=== PATIENT | male | born 1945 | race Caucasian/White ===

== ENCOUNTER 2016-12-25 07:21 | Outpatient (CLI) | payer MEDICARE, OTHER | END 2016-12-25 07:22 | disposition home or self-care (01) | DX: N28.9 Disorder of kidney and ureter, unspecified (principal); E11.9 Type 2 diabetes mellitus without complications; I10 Essential (primary) hypertension; C61 Malignant neoplasm of prostate; E78.5 Hyperlipidemia, unspecified | CPT/HCPCS: 36415; 80053; 80061; 83036; 85025; G0103 ==

== ENCOUNTER 2017-06-25 09:09 | Outpatient (CLI) | payer MEDICARE, OTHER ==
[2017-06-25 18:18] LABS: BASOPHILS % (AUTO) 0.3 %; EOSINOPHILS # (AUTO) 0.2 10^3/uL (0.0-0.7); EOSINOPHILS % (AUTO) 2.9 %; HCT - HEMATOCRIT 42.4 % (42.0-52.0); HGB - HEMOGLOBIN 14.3 g/dL (14.0-18.0); LYMPHOCYTES # (AUTO) 1.7 10^3/uL (1.5-3.5); LYMPHOCYTES % (AUTO) 21.7 %; MEAN CORPUSCULAR HEMOGLOBIN 31.6 pg (27.0-31.0); MEAN CORPUSCULAR HGB CONC 33.8 g/dL (32.0-36.0); MEAN CORPUSCULAR VOLUME 93.5 fL (80.0-94.0); MEAN PLATELET VOLUME 8.7 fL (7.4-11.4); MONOCYTES # (AUTO) 0.6 10^3/uL (0.0-1.0); MONOCYTES % (AUTO) 7.4 %; NEUTROPHILS # (AUTO) 5.3 10^3/uL (1.5-6.6); NEUTROPHILS % (AUTO) 67.7 %; RED BLOOD COUNT 4.54 10^6/uL (4.70-6.10); RED CELL DISTRIBUTION WIDTH 13.2 % (12.0-15.0); UNCORRECTED WHITE BLOOD COUNT 7.8 x10^3/uL; WHITE BLOOD COUNT 7.8 x10^3/uL (4.8-10.8)
[2017-06-25 18:44] LABS: ALBUMIN/GLOBULIN RATIO 1.4 (1.0-2.2); BILIRUBIN,TOTAL 0.9 mg/dL (0.2-1.0); BUN - BLOOD UREA NITROGEN 25 mg/dL (6-20); CALCIUM 9.6 mg/dL (8.5-10.3); CARBON DIOXIDE - CO2 27 mmol/L (21-32); CHLORIDE 101 mmol/L (101-111); CHOL/HDL RATIO 3.1 (<5.0); CHOLESTEROL 127 mg/dL; CREATININE 1.3 mg/dL (0.6-1.2); GFR - MDRD 54 (>89); GLUCOSE 207 mg/dL (70-100); HDL CHOLESTEROL 41 mg/dL; LDL/HDL RATIO 1.4 (<3.6); POTASSIUM 4.5 mmol/L (3.5-5.0); SODIUM 137 mmol/L (135-145); TOTAL PROTEIN 7.3 g/dL (6.7-8.2); TRIGLYCERIDES 145 mg/dL; VLDL CHOLESTEROL 29 mg/dL
[2017-06-25 19:14] LABS: HEMOGLOBIN A1C 1.09 g/dL
== END 2017-06-25 09:10 | disposition home or self-care (01) ==
LOC: LAB.F 09:09
PROVIDERS: ATTEND Family Medicine
DX: I25.10 Atherosclerotic heart disease of native coronary artery without angina pectoris (principal); E11.9 Type 2 diabetes mellitus without complications; N28.9 Disorder of kidney and ureter, unspecified; G89.29 Other chronic pain; C61 Malignant neoplasm of prostate; I10 Essential (primary) hypertension; E78.5 Hyperlipidemia, unspecified
CPT/HCPCS: 36415; 80053; 80061; 82043; 83036; 85025

== ENCOUNTER 2018-05-23 07:28 | Outpatient (CLI) | payer MEDICARE, OTHER ==
[2018-05-23 10:56] LABS: MEAN RETIC VALUE 104.7; RED BLOOD COUNT 3.82 10^6/uL (4.70-6.10)
[2018-05-23 11:20] LABS: % IRON SATURATION 30 % (20-50); ALBUMIN 3.8 g/dL (3.2-5.5); ALBUMIN/GLOBULIN RATIO 1.1 (1.0-2.2); ALKALINE PHOSPHATASE 64 IU/L (42-121); ALT ALANINE AMINOTRANSFERASE 30 IU/L (10-60); AST ASPARTATE AMINOTRANSFERASE 24 IU/L (10-42); BILIRUBIN,TOTAL 0.5 mg/dL (0.2-1.0); BUN - BLOOD UREA NITROGEN 33 mg/dL (6-20); CALCIUM 9.9 mg/dL (8.5-10.3); CARBON DIOXIDE - CO2 27 mmol/L (21-32); CHLORIDE 104 mmol/L (101-111); CHOL/HDL RATIO 3.2 (<5.0); CHOLESTEROL 142 mg/dL; CREATININE 1.3 mg/dL (0.6-1.2); GFR - MDRD 54 (>89); GLUCOSE 252 mg/dL (70-100); HB2 TOTAL 12.7 g/dL; HDL CHOLESTEROL 44 mg/dL; HEMOGLOBIN A1C 1.18 g/dL; HEMOGLOBIN A1C % 10.7 % (4.6-6.2); IRON 84 ug/dL (45-182); LDL CHOLESTEROL,CALCULATED 60 mg/dL; LDL/HDL RATIO 1.4 (<3.6); SODIUM 138 mmol/L (135-145); TOTAL IRON BINDING CAPACITY 281 ug/dL (250-450); TOTAL PROTEIN 7.4 g/dL (6.7-8.2); TRANSFERRIN 201 mg/dL (180-329); VLDL CHOLESTEROL 38 mg/dL
[2018-05-23 11:21] LABS: THYROID STIMULATING HORMONE 3.25 uIU/mL (0.34-5.60)
[2018-05-23 11:29] LABS: FERRITIN 325.6 ng/mL (23.9-336.2)
[2018-05-23 11:32] LABS: FOLATE 18.09 ng/mL (5.90 - >24.8)
== END 2018-05-23 07:29 | disposition home or self-care (01) ==
LOC: LAB.F 07:28
PROVIDERS: ATTEND Family Medicine
DX: D64.9 Anemia, unspecified (principal); E04.1 Nontoxic single thyroid nodule; E11.9 Type 2 diabetes mellitus without complications; N28.9 Disorder of kidney and ureter, unspecified; I10 Essential (primary) hypertension; E78.5 Hyperlipidemia, unspecified
CPT/HCPCS: 36415; 80053; 80061; 82607; 82728; 82746; 83036; 83540; 83721; 84443; 84466; 85044

== ENCOUNTER 2018-07-21 13:25 | Outpatient (CLI) | payer MEDICARE, OTHER ==
[2018-07-21 18:02] LABS: THYROID STIMULATING HORMONE 1.11 uIU/mL (0.34-5.60)
[2018-07-21 18:04] LABS: FREE T4 (FREE THYROXINE) 0.72 ng/dL (0.58-1.64)
== END 2018-07-21 13:26 | disposition home or self-care (01) ==
LOC: LAB.F 13:25
PROVIDERS: ATTEND Nurse Practitioner Family
DX: E04.1 Nontoxic single thyroid nodule (principal)
CPT/HCPCS: 36415; 84439; 84443; 84481

== ENCOUNTER 2019-01-18 08:00 | Outpatient (CLI) | payer MEDICARE, OTHER ==
[2019-01-18 11:58] LABS: MUDS CUTOFF CONCENTRATIONS CUTOFF CONC BELOW:
[2019-01-18 12:13] LABS: COCAINE SCREEN URINE NEGATIVE (NEGATIVE); METHAMPHETAMINES SCREEN, URINE NEGATIVE (NEGATIVE)
[2019-01-18 12:14] LABS: AMPHETAMINE SCREEN,URINE NEGATIVE (NEGATIVE); BENZODIAZEPINES SCREEN, URINE NEGATIVE (NEGATIVE); METHADONE SCREEN, URINE NEGATIVE (NEGATIVE); OPIATE SCREEN, URINE POSITIVE (NEGATIVE); OXYCODONE SCREEN, URINE NEGATIVE (NEGATIVE); PROPOXYPHENE SCREEN, URINE NEGATIVE (NEGATIVE); TRICYCLIC ANTIDEPRESSANT,URINE POSITIVE (NEGATIVE)
== END 2019-01-18 23:59 | disposition home or self-care (01) ==
LOC: LAB.R 08:00
PROVIDERS: ATTEND Nurse Practitioner Family
DX: G89.29 Other chronic pain (principal); Z79.899 Other long term (current) drug therapy
CPT/HCPCS: 80306

== ENCOUNTER 2019-08-30 15:26 | Outpatient (CLI) | payer MEDICARE, OTHER ==
[2019-08-30 17:12] LABS: BASOPHILS % (AUTO) 0.5 %; EOSINOPHILS # (AUTO) 0.2 10^3/uL (0.0-0.7); EOSINOPHILS % (AUTO) 2.4 %; HGB - HEMOGLOBIN 13.2 g/dL (14.0-18.0); LYMPHOCYTES # (AUTO) 1.3 10^3/uL (1.5-3.5); LYMPHOCYTES % (AUTO) 21.4 %; MEAN CORPUSCULAR HEMOGLOBIN 31.4 pg (27.0-31.0); MEAN CORPUSCULAR HGB CONC 33.6 g/dL (32.0-36.0); MEAN CORPUSCULAR VOLUME 93.3 fL (80.0-94.0); MEAN PLATELET VOLUME 9.7 fL (7.4-11.4); MONOCYTES # (AUTO) 0.6 10^3/uL (0.0-1.0); NEUTROPHILS % (AUTO) 65.7 %; PLT - PLATELET COUNT 305 10^3/uL (130-450); RED BLOOD COUNT 4.21 10^6/uL (4.70-6.10); RED CELL DISTRIBUTION WIDTH 12.5 % (12.0-15.0); WHITE BLOOD COUNT 6.1 x10^3/uL (4.8-10.8)
[2019-08-30 17:35] LABS: HB2 TOTAL 13.2 g/dL; HEMOGLOBIN A1C 1.15 g/dL; HEMOGLOBIN A1C % 10.1 % (4.6-6.2)
[2019-08-30 17:40] LABS: CREATININE,URINE 183.1 mg/dL; MICROALBUM/CREATININE RATIO,UR 15.3 ug/mg (<30.0); MICROALBUMIN,URINE 2.8 mg/dL (0-300.0)
[2019-08-30 17:42] LABS: ALBUMIN/GLOBULIN RATIO 1.1 (1.0-2.2); ALKALINE PHOSPHATASE 76 IU/L (42-121); ALT ALANINE AMINOTRANSFERASE 31 IU/L (10-60); AST ASPARTATE AMINOTRANSFERASE 21 IU/L (10-42); BILIRUBIN,TOTAL 0.6 mg/dL (0.2-1.0); BUN - BLOOD UREA NITROGEN 44 mg/dL (6-20); CALCIUM 9.4 mg/dL (8.5-10.3); CARBON DIOXIDE - CO2 25 mmol/L (21-32); CHLORIDE 101 mmol/L (101-111); CHOLESTEROL 284 mg/dL; GFR - MDRD 33 (>89); GLUCOSE 258 mg/dL (70-100); HDL CHOLESTEROL 47 mg/dL; LDL CHOLESTEROL,CALCULATED 181 mg/dL; LDL/HDL RATIO 3.9 (<3.6); SODIUM 134 mmol/L (135-145); TOTAL PROTEIN 7.6 g/dL (6.7-8.2); VLDL CHOLESTEROL 56 mg/dL
== END 2019-08-30 15:27 | disposition home or self-care (01) ==
LOC: LAB.S 15:26
PROVIDERS: ATTEND Physician Assistant Medical
DX: E11.9 Type 2 diabetes mellitus without complications (principal); E78.5 Hyperlipidemia, unspecified; E04.1 Nontoxic single thyroid nodule
CPT/HCPCS: 36415; 80053; 80061; 82043; 82570; 83036; 83721; 84443; 85025

== ENCOUNTER 2021-07-01 10:23 | Outpatient (CLI) | payer MEDICARE, OTHER ==
[2021-07-01 15:14] LABS: HGB - HEMOGLOBIN 14.6 g/dL (14.0-18.0)
[2021-07-01 15:44] LABS: ALBUMIN 4.4 g/dL (3.2-5.5); CALCIUM 9.6 mg/dL (8.5-10.3); CREATININE 1.2 mg/dL (0.6-1.2); PHOSPHORUS 3.3 mg/dL (2.5-4.6); POTASSIUM 4.1 mmol/L (3.5-5.0)
[2021-07-01 15:48] LABS: CREATININE,URINE 178.8 mg/dL; PROTEIN/CREATININE RATIO,URINE 0.2 (<=0.2)
== END 2021-07-01 10:24 | disposition home or self-care (01) ==
LOC: LAB.S 10:23
PROVIDERS: ATTEND Family Medicine
DX: N18.30 Chronic kidney disease, stage 3 unspecified (principal)
CPT/HCPCS: 36415; 80069; 82570; 83970; 84156; 85014; 85018

== ENCOUNTER 2021-11-04 09:33 | Outpatient (CLI) | payer MEDICARE, OTHER | END 2021-11-04 09:34 | disposition home or self-care (01) | LOC: LAB.S 09:33 | PROVIDERS: ATTEND Specialist | DX: Z08 Encounter for follow-up examination after completed treatment for malignant neoplasm (principal); Z85.46 Personal history of malignant neoplasm of prostate | CPT/HCPCS: 36415; 84153 ==

== ENCOUNTER 2022-12-08 20:10 | Outpatient (CLI) | payer MEDICARE, OTHER | END 2022-12-08 20:11 | disposition short-term general hospital (02) | LOC: EMS 20:10 | DX: R53.1 Weakness (principal); R41.0 Disorientation, unspecified; R09.02 Hypoxemia | CPT/HCPCS: A0425; A0429 ==

== ENCOUNTER 2023-01-20 12:46 | Outpatient (CLI) | payer MEDICARE, OTHER | END 2023-01-20 12:47 | disposition home or self-care (01) | LOC: LAB.S 12:46 | PROVIDERS: ATTEND Specialist | DX: C61 Malignant neoplasm of prostate (principal) | CPT/HCPCS: 36415; 84153 ==

== ENCOUNTER 2023-02-10 11:04 | Outpatient (CLI) | payer MEDICARE, OTHER ==
[2023-02-10 15:08] LABS: ALBUMIN 3.9 g/dL (3.2-5.5); CALCIUM 9.3 mg/dL (8.5-10.3); CREATININE 1.3 mg/dL (0.6-1.2); PHOSPHORUS 3.1 mg/dL (2.5-4.6); POTASSIUM 4.4 mmol/L (3.5-5.0)
[2023-02-10 15:28] LABS: CREATININE,URINE 92.9 mg/dL; PROTEIN/CREATININE RATIO,URINE 0.4 (<=0.2)
== END 2023-02-10 11:05 | disposition home or self-care (01) ==
LOC: LAB.S 11:04
PROVIDERS: ATTEND Specialist
DX: Z08 Encounter for follow-up examination after completed treatment for malignant neoplasm (principal); N17.9 Acute kidney failure, unspecified; D32.0 Benign neoplasm of cerebral meninges; Z85.46 Personal history of malignant neoplasm of prostate
CPT/HCPCS: 36415; 80069; 82565; 82570; 84156; 84520

== ENCOUNTER 2023-04-19 08:36 | Outpatient (CLI) | payer MEDICARE, OTHER ==
[2023-04-19 15:36] LABS: ALBUMIN 4.4 g/dL (3.2-5.5); CREATININE 1.3 mg/dL (0.6-1.3); PHOSPHORUS 3.3 mg/dL (3.7-7.2); POTASSIUM 4.3 mmol/L (3.5-4.5)
[2023-04-19 15:58] LABS: CREATININE,URINE 189.3 mg/dL; PROTEIN/CREATININE RATIO,URINE 0.3 (<=0.2)
== END 2023-04-19 08:37 | disposition home or self-care (01) ==
LOC: LAB.S 08:36
PROVIDERS: ATTEND Internal Medicine Nephrology
DX: N17.9 Acute kidney failure, unspecified (principal)
CPT/HCPCS: 36415; 80069; 82570; 84156

== ENCOUNTER 2023-10-11 10:52 | Outpatient (CLI) | payer MEDICARE, OTHER ==
[2023-10-11 15:26] LABS: BASOPHILS % (AUTO) 0.3 %; EOSINOPHILS # (AUTO) 0.2 10^3/uL (0.0-0.7); EOSINOPHILS % (AUTO) 2.9 %; HCT - HEMATOCRIT 39.1 % (42.0-52.0); HGB - HEMOGLOBIN 12.9 g/dL (14.0-18.0); LYMPHOCYTES # (AUTO) 1.4 10^3/uL (1.5-3.5); LYMPHOCYTES % (AUTO) 22.8 %; MEAN PLATELET VOLUME 10.1 fL (7.4-11.4); MONOCYTES # (AUTO) 0.6 10^3/uL (0.0-1.0); MONOCYTES % (AUTO) 9.6 %; NEUTROPHILS # (AUTO) 3.8 10^3/uL (1.5-6.6); NEUTROPHILS % (AUTO) 63.9 %; PLT - PLATELET COUNT 239 10^3/uL (130-450); RED BLOOD COUNT 4.16 10^6/uL (4.70-6.10)
[2023-10-11 16:32] LABS: ALBUMIN 4.2 g/dL (3.2-5.5); ALBUMIN/GLOBULIN RATIO 1.4 (1.0-2.2); BILIRUBIN,TOTAL 0.5 mg/dL (0.2-1.0); CALCIUM 10.1 mg/dL (8.5-10.3); CREATININE 1.1 mg/dL (0.6-1.3); PHOSPHORUS 3.6 mg/dL (2.5-5.0); POTASSIUM 4.5 mmol/L (3.5-4.5); TOTAL PROTEIN 7.2 g/dL (6.4-8.9)
[2023-10-12 18:07] LABS: KAPPA FREE LT CHAINS SERUM 29.5 mg/L (3.3-19.4); KAPPA/LAMBDA RATIO SERUM 1.51 (0.26-1.65); LAMBDA FREE LT CHAINS SERUM 19.5 mg/L (5.7-26.3)
[2023-10-13 15:09] LABS: A/G RATIO 1.3 (0.7-1.7); ALBUMIN 3.8 g/dL (2.9-4.4); ALPHA-1-GLOBULIN 0.3 g/dL (0.0-0.4); ALPHA-2-GLOBULIN 0.7 g/dL (0.4-1.0); BETA GLOBULIN 0.9 g/dL (0.7-1.3); GAMMA GLOBULIN 1.3 g/dL (0.4-1.8); GLOBULIN TOTAL 3.1 g/dL (2.2-3.9); IMMUNOGLOBULIN A (IGA) 105 mg/dL (61-437); IMMUNOGLOBULIN G (IGG) 1359 mg/dL (603-1613); IMMUNOGLOBULIN M (IGM) 49 mg/dL (15-143); M-SPIKE 0.8 g/dL (Not Observed); PROTEIN TOTAL 6.9 g/dL (6.0-8.5)
== END 2023-10-11 10:53 | disposition home or self-care (01) ==
LOC: LAB.S 10:52
PROVIDERS: ATTEND Internal Medicine Hematology & Oncology
DX: D47.2 Monoclonal gammopathy (principal); N17.9 Acute kidney failure, unspecified
CPT/HCPCS: 36415; 80053; 82784; 83521; 84100; 84155; 84165; 85025; 86334

== ENCOUNTER 2023-10-12 13:57 | Outpatient (CLI) | payer MEDICARE, OTHER ==
[2023-10-12 20:29] LABS: CREATININE,URINE 82.6 mg/dL; PROTEIN/CREATININE RATIO,URINE 0.3 (<=0.2)
== END 2023-10-12 13:58 | disposition home or self-care (01) ==
LOC: LAB.S 13:57
PROVIDERS: ATTEND Internal Medicine Nephrology
DX: N17.9 Acute kidney failure, unspecified (principal)
CPT/HCPCS: 82570; 84156

== ENCOUNTER 2024-01-12 07:03 | Outpatient (CLI) | payer MEDICARE, OTHER | END 2024-01-12 07:04 | disposition home or self-care (01) | LOC: LAB.S 07:03 | PROVIDERS: ATTEND Specialist | DX: Z08 Encounter for follow-up examination after completed treatment for malignant neoplasm (principal); Z85.46 Personal history of malignant neoplasm of prostate; D32.0 Benign neoplasm of cerebral meninges | CPT/HCPCS: 36415; 84153 ==